=== PATIENT | female | born 2000 | race Caucasian/White ===

== ENCOUNTER 2020-08-25 16:05 | Emergency (ER) | payer OTHER, BC ==
--- NOTE | 2020-08-25 16:45 | EDM.PDOC ---
ED HPI GENERAL MEDICAL PROBLEM - General Chief Complaint: ENT Problem Stated Complaint: BROKE NOSE PLAYING SOFTBALL Time Seen by Provider: 08/25/20 16:10 Source of Information: Reports: Patient History Limitations: Reports: No Limitations - History of Present Illness INITIAL COMMENTS - FREE TEXT/NARRATIVE: Emergency department with complaints of a nasal injury. Patient was playing softball just prior to arrival and took a ball to the nose. Patient was going for a ball up in the air and ended up hitting the fence and the ball ended up smacking her in the nose. Patient states that she did not lose consciousness did not get dizzy lightheaded nausea or vomiting. Patient states that she did have immediate bleeding. It was able to be controlled prior to arrival with nasal inserts. Patient states that the pain is fairly minimal if she is just resting and not moving it. She denies any headache blurred vision, nausea, dizziness, swallowing blood, shortness of breath, chest pain, peripheral edema, or abdominal discomfort. Onset: Sudden Quality: Reports: Throbbing Severity: Moderate Improves with: Reports: Rest Worsens with: Reports: Movement Context: Reports: Trauma Associated Symptoms: Reports: No Other Symptoms - Related Data Allergies Allergy/AdvReac Type Severity Reaction Status Date / Time hand upper cutter out Allergy Rash Uncoded 08/25/20 16:19 Home Meds: Home Meds Loratadine [Claritin] 10 mg PO DAILY 08/25/20 [History] Past Medical History - Past Health History Medical/Surgical History: Denies Medical/Surgical History Social & Family History - Tobacco Use Tobacco Use Status *Q: Never Tobacco User ED ROS GENERAL - Review of Systems Review Of Systems: Comprehensive ROS is negative, except as noted in HPI. Constitutional: Reports: No Symptoms HEENT: Reports: Nosebleed, Nose Pain, Sinus Problem Respiratory: Reports: No Symptoms Cardiovascular: Reports: No Symptoms Endocrine: Reports: No Symptoms GI/Abdominal: Reports: No Symptoms : Reports: No Symptoms Musculoskeletal: Reports: No Symptoms Skin: Reports: No Symptoms Neurological: Reports: No Symptoms Psychiatric: Reports: No Symptoms Hematologic/Lymphatic: Reports: No Symptoms Immunologic: Reports: No Symptoms ED EXAM, GENERAL - Physical Exam Exam: See Below Exam Limited By: No Limitations General Appearance: Alert, WD/WN, No Apparent Distress Eye Exam: Bilateral Eye: EOMI, PERRL Ears: Normal External Exam, Normal Canal, Hearing Grossly Normal, Normal TMs Ear Exam: Bilateral Ear: Auricle Normal, Canal Normal, TM normal Nose: Nasal Tenderness, Nasal Drainage, Other (moderate swelling, dried blood noted) Head: Atraumatic, Normocephalic Neck: Normal Inspection, Supple, Non-Tender, Full Range of Motion Respiratory/Chest: No Respiratory Distress, Lungs Clear, Normal Breath Sounds, Chest Non-Tender Cardiovascular: Normal Peripheral Pulses, Regular Rate, Rhythm, No Edema GI/Abdominal: Normal Bowel Sounds, Soft, Non-Tender Back Exam: Normal Inspection, Full Range of Motion Extremities: Normal Inspection, Normal Range of Motion, Non-Tender, Normal Capillary Refill Neurological: Alert, Oriented, CN II-XII Intact, Normal Gait Psychiatric: Normal Affect, Normal Mood Skin Exam: Warm, Dry, Intact Course - Vital Signs Last Recorded V/S: Last Vital Signs Temp 36.6 C 08/25/20 16:10 Pulse 85 08/25/20 16:10 Resp 18 08/25/20 16:10 BP 112/60 08/25/20 16:10 Pulse Ox 98 08/25/20 16:10 - Orders/Labs/Meds Meds: Medications Discontinued Medications Generic Name Dose Route Start Last Admin Trade Name Freq PRN Reason Stop Dose Admin Hydrocodone Bitart/Acetaminophen 1 packet 08/25/20 17:01 Take Home: Acetaminophen/Hydrocodone 325-5 Mg, 5 Tab Pack PO 08/25/20 17:02 ONETIME ONE Departure - Departure Time of Disposition: 17:30 Disposition: Home, Self-Care 01 Clinical Impression: Epistaxis Nasal injury Qualifiers: Encounter type: initial encounter Qualified Code(s): S09.92XA - Unspecified injury of nose, initial encounter - Discharge Information *PRESCRIPTION DRUG MONITORING PROGRAM REVIEWED*: Not Applicable *COPY OF PRESCRIPTION DRUG MONITORING REPORT IN PATIENT АННА: Not Applicable Instructions: Nosebleed, Adult Forms: ED Department Discharge Additional Instructions: 1. Rest 2. Can wear the drains in the nasal cavity to help control bleeding 3. Can use tylenol and ibuprofen as needed for pain and discomfort 4. Diet as tolerated 5. Activity as tolerated 6. Keep the head elevated 7. Use ice 3-4 times a day at 20-minute intervals to help with any swelling and discomfort 8. Follow-up with ENT/plastics for re-evaluation within 1 week for further medical management 9. Follow with any questions or concerns 10. Discharge information has been provided regarding your injury Sepsis Event Note (ED) - Evaluation Sepsis Screening Result: No Definite Risk - Focused Exam Vital Signs: Vital Signs Temp Pulse Resp BP Pulse Ox 08/25/20 16:10 36.6 C 85 18 112/60 98 - Assessment/Plan Assessment:: 1. nasal injury 2. nose bleed Plan: 1. X-ray completed in the emergency department results reviewed with the patient 2. Ice Applied to the nose 3. Medication offered to the patient 4. Education regarding splinting, activity, [id number] medications, and follow-up care provided. 5. All questions and concerns addressed with the patient prior to discharge
[2020-08-25] MEDS ORDERED: Take Home: Acetaminophen/HYDROcodone 325-5 MG, 5 Tab Pack PO ONE (17:01)
--- NOTE | 2020-08-25 17:22 | CR ---
[id number] RAD/RAD Nasal Bones EXAM: 2 VIEWS NASAL BONES. INDICATION: BALL TO NOSE. COMPARISON: None. DISCUSSION: No fracture, dislocation or other acute osseous abnormality. IMPRESSION: 1. No acute osseous abnormalities. Quentin Castellanos DO 08/25/20 [id number] Thank you for allowing us to participate in the care of your patient.
--- NOTE | 2020-08-25 17:23 | CR ---
[id number] RAD/RAD Facial Bones 3V Min EXAM: 3 VIEWS FACIAL BONES. INDICATION: BALL TO NOSE. COMPARISON: None. DISCUSSION: No fracture, dislocation or other acute osseous abnormality. IMPRESSION: 1. No acute osseous abnormalities. Quentin Castellanos DO 08/25/20 [id number] Thank you for allowing us to participate in the care of your patient.
== END 2020-08-25 17:35 | disposition home or self-care (01) ==
LOC: VM.ED 16:05
DX: S09.92XA Unspecified injury of nose, initial encounter (principal); R04.0 Epistaxis; Z91.048 Other nonmedicinal substance allergy status; W21.07XA Struck by softball, initial encounter; Y93.64 Activity, baseball
CPT/HCPCS: 70140; 70160; 99283; 99283-25; A9270-GY